=== PATIENT | female | born 1955 | race Caucasian/White ===

== ENCOUNTER → 2024-09-29 13:38 | Outpatient (REF) | payer MEDICARE, BC, SELFPAY | LOC: HWWDC 13:38 | PROVIDERS: ATTENDING PHYSICIAN Family Medicine | DX: Z12.31 Encounter for screening mammogram for malignant neoplasm of breast (principal) | CPT/HCPCS: 77063; 77067 ==

== ENCOUNTER 2024-12-05 05:40 | Emergency (ER) | payer MEDICARE, BC, SELFPAY ==
[2024-12-05 05:50] VITALS: BP 150/84
[2024-12-05 06:16] VITALS: BP 136/76
[2024-12-05 06:18] VITALS: BMI 34.8
[2024-12-05 06:19] VITALS: BP 136/76
[2024-12-05 06:39] LABS: COVID-19 Antigen Negative (Negative)
[2024-12-05] MEDS: NSS 1000 IV (06:39)
[2024-12-05 06:41] LABS: Blood Urea Nitrogen 17 mg/dl (7-17); Calcium 9.3 mg/dl (8.4-10.2); Carbon Dioxide 22 mmol/L (22-30); Chloride 97 mmol/L (98-107); Estimated Creatinine Clearance 94 ml/min; Glucose 142 mg/dl (70-99); Sodium 132 mmol/L (135-145); eGFR > 60.00
[2024-12-05] MEDS: ZOFRAN 4 MG IV (06:43)
--- NOTE | 2024-12-05 06:47 | ED.GENMED ---
History of Present Illness
General
Chief Complaint: Abdominal Symptoms
Source: patient and spouse
Exam Limitations: none
Time Seen by Provider: 12/05/24 06:04
History of Present Illness
History of Present Illness:
This is a 69-year-old female presents nausea vomiting diarrhea. Symptoms started at 11:00 last night. The patient states that her symptoms persisted through the night. This morning patient symptoms persisted. She states on my evaluation that she
has not vomited in 45 minutes actually feels better. She has some soreness from vomiting in her mid abdomen but no true abdominal pain. No melena or hematochezia. She did have the chills but measured her temperature and was not febrile. Patient
denies dysuria. No obvious sick contacts
Past History
Past History
ED Past Medical History: HTN and Hypercholesterolemia
ED Past Surgical History: Orthopedic and Tonsilectomy
Phy Exam
Physical Exam
Physical Exam:
CONSTITUTIONAL Patient alert and oriented to person, place and time. Well-appearing. Vital signs reviewed.
HEAD atraumatic, normocephalic.
EYES eyelids normal to inspection, Extraocular muscles intact, Conjunctiva normal, Sclera normal.
NECK normal range of motion, Trachea midline, no jugular venous distention.
RESPIRATORY CHEST No respiratory distress noted, Chest expansion equal
ABDOMEN abdomen nontender, Bowel sounds normal. No distention.
BACK normal inspection, no obvious deformities
UPPER EXTREMITY range of motion normal, Motor strength normal, no cyanosis, no edema.
LOWER EXTREMITY range of motion normal, Motor strength normal, no cyanosis, no edema.
NEURO Speech normal, No focal motor deficits, [place] coma scale 15, Memory normal, Cranial Nerves intact to screening exam.
SKIN skin warm, dry, and normal in color.
Course
Orders/Labs/Results
Orders:
Orders
12/05/24 06:14
Basic Metabolic Panel Urgent
Comment: NO K
COVID-19 Antigen Urgent
Source: Nasal Swab
Complete Blood Count/With Diff Urgent
Influenza A+B Rapid Molecular Urgent
TRES Source: Nasal Swab
Specimen Description:
12/05/24 06:27
0.9% Sodium Chloride 1000 ml [Nss] 1,000 ml IV BOLUS
12/05/24 06:42
Ondansetron Injectable [Zofran] 4 mg .ROUTE .STK-MED ONE
12/05/24 06:43
Ondansetron Injectable [Zofran] 4 mg IV NOW STA
12/05/24 07:04
Potassium Urgent
Abnormal Lab Results
12/05/24
06:14
MCH 31.3 H pg
(27.0-31.0)
Sodium 132 L mmol/L
(135-145)
Chloride 97 L mmol/L
(98-107)
Creatinine 0.5 L mg/dL
(0.6-1.0)
Glucose 142 H mg/dl
(70-99)
12/05/24 06:14
12/05/24 07:04
Vital Signs
Initial and Last Documented VS:
Initial Vital Signs
Temp Pulse Resp BP Pulse Ox
98.6 F 100 22 150/84 100
12/05/24 05:50 12/05/24 05:50 12/05/24 05:50 12/05/24 05:50 12/05/24 05:50
Last Documented Vital Signs
Temp Pulse Resp BP Pulse Ox
98.6 F 90 18 135/70 98
12/05/24 06:19 12/05/24 06:19 12/05/24 06:19 12/05/24 07:00 12/05/24 07:45
MDM/Problems Addressed
Differential Diagnosis Includes:
Bowel obstruction, appendicitis, colitis, enteritis, viral syndrome
MDM/Problems Addressed:
Gastroenteritis
*Pulse Oximetry
Patient hypoxic: no
*Critical Care Note
Total Time (30-74mins, 75-104mins- exclusive of procedures): Not Applicable
Data Reviewed
Source: patient and spouse
Further Testing Considered But Not Given:
Consider CT of the abdomen however abdomen soft and benign
Patient Management
Escalation/DeEscalation of care consider admission/obs:
Patient feels much better. Suspect gastroenteritis. Recommended slow progression of the diet. Proper fluid intake and outpatient follow-up
ED Attending Note
-
Portions of this chart may have been created with voice recognition software.� Occasional wrong word or��sound alike� substitutions may have occurred due to the inherent limitations of voice recognition software.
Discharge Plan
Departure
Patient Disposition: Home (Routine Discharge)
Date of Disposition: 12/05/24
Time of Disposition: 08:20
Patient with high blood pressure during this ER visit?: No
Discharge Problem:
Gastroenteritis
Instructions: Clear Liquid Diet, Nausea and Vomiting, Adult (DC)
Prescriptions:
New
ondansetron 4 mg tablet,disintegrating
4 mg PO Q8H PRN (Reason: nausea and vomiting) Qty: 14 0RF
No Action
rosuvastatin 5 mg Tablet
5 mg PO HS
Centrum Women 18-400 mg-mcg Tablet
1 tab PO DAILY
losartan 50 mg Tablet
50 mg PO DAILY
mupirocin 2 % ointment
1 applic topical BID Qty: 1 0RF
celecoxib 200 mg capsule
200 mg PO DAILY Qty: 14 0RF
Rx Instructions:
*take with food
*space out 2 hours from aspirin
aspirin 325 mg tablet
325 mg PO DAILY Qty: 1 0RF
Rx Instructions:
Take with food
dexamethasone 4 mg tablet
4 mg PO BID Qty: 6 0RF
Rx Instructions:
take with food
post-op use only
docusate sodium [Colace] 100 mg capsule
100 mg PO BID Qty: 1 0RF
sennosides [Senokot] 8.6 mg tablet
17.2 mg PO BID Qty: 2 0RF
famotidine 20 mg tablet
20 mg PO HS Qty: 30 0RF
Rx Instructions:
post-op
magnesium hydroxide [Milk of Magnesia] 400 mg/5 mL suspension
30 ml PO HS PRN (Reason: Constipation) Qty: 1 0RF
gabapentin 300 mg capsule
300 mg PO HS Qty: 10 0RF
oxycodone 5 mg tablet
5 - 10 mg PO Q6HPRN PRN (Reason: 1 tab moderate-2 tabs severe pain) Qty: 30 0RF
Rx Instructions:
Dx surgery
ongoing therapy
Post-op use
acetaminophen [Tylenol] 325 mg capsule
650 mg PO QID Qty: 2 0RF
Referrals:
Aron Crowell MD [Family Provider] -
Activity Restrictions/Additional Instructions:
Please drink plenty fluids and advance diet slowly. Return immediately for intractable vomiting, bloody stool, bloody vomit, abdominal pain or any other concerns
Interventions
Interventions:
*Risk Screen - Suicide Last Done: 12/05/24 05:50
*General Assessment Last Done: 12/05/24 06:22
*Neglect/Abuse Screening Last Done: 12/05/24 05:50
ED- Fall Risk Assessment Last Done: 12/05/24 06:22
*ED COVID-19 Vaccine History Last Done: 12/05/24 06:22
EP-Pfjlcz-Vpboxycswc Assessment Last Done: 12/05/24 06:20
ED- Cardiac Assessment Last Done: 12/05/24 06:20
ED- Neurological Assessment Last Done: 12/05/24 06:20
ED- Pulmonary Assessment Last Done: 12/05/24 06:20
Discharge Date and Time
Print Language: AMHARIC
[2024-12-05 07:00] VITALS: BP 135/70
[2024-12-05 07:03] LABS: Hematocrit 40.3 % (37.0-47.0); Hemoglobin 14.1 g/dL (12.0-16.0); Mean Corpuscular Hgb 31.3 pg (27.0-31.0); Mean Corpuscular Volume 89.4 fL (81.0-99.0); Mean Platelet Volume 8.4 fL (7.4-10.4); Platelet Count 273 10^3/uL (130-400); Red Blood Cell Count 4.51 10^6/uL (4.20-5.40); Red Cell Dist. Width 12.6 % (11.5-14.5); White Blood Cell Count 5.3 10^3/uL (4.8-10.8)
[2024-12-05 07:31] LABS: Potassium 4.8 mmol/L (3.5-5.1)
[2024-12-05 08:55] LABS: Absolute Neutrophils -Man Diff 4.7 10^3/uL (1.4-6.5); Band Neutrophils 14 % (0-3); Lymphocytes 5 % (20-51); Monocytes 5 % (2-9); Platelets Checked YES; Segmented Neutrophils 76 % (42-75)
[2024-12-05 08:57] LABS: Normal RBC Morphology No; Target Cells FEW; Tear Drop Red Blood Cells FEW
[2024-12-05 08:58] LABS: Total Cells Counted 100
== END 2024-12-05 08:32 | disposition home or self-care (01) ==
LOC: EMR 05:40
PROVIDERS: Student in an Organized Health Care Education/Training Program; EMERGENCY PHYSICIAN Emergency Medicine; FAMILY PHYSICIAN Family Medicine
DX: K52.9 Noninfective gastroenteritis and colitis, unspecified (principal); I10 Essential (primary) hypertension; E78.00 Pure hypercholesterolemia, unspecified
CPT/HCPCS: 99283; 96374; 96361; 80048; 84132; 85025; 87502; 87811

== ENCOUNTER 2025-09-26 10:02 | Day surgery (SDC) | payer MEDICARE, BC, SELFPAY ==
--- NOTE | 2025-09-09 11:04 | CM ---
Demographics:confirmed
Living situation: lives with
Support Person Post Operatively:
History of
VN: [facility], not currently on service
SNF: No
Outpatient: [facility] 09/28 appointment.
Has patient purchased required equipment: yes, walker
PCP: confirmed
Pharmacy: [facility]
Post Operative Discharge Plan: Home with family support and outpatient PT
[2025-09-12 13:56] LABS: Hematocrit 37.9 % (37.0-47.0); Hemoglobin 13.0 g/dL (12.0-16.0); Mean Corp Hgb Conc. 34.3 g/dL (33.0-37.0); Mean Corpuscular Volume 93.6 fL (81.0-99.0); Platelet Count 285 10^3/uL (130-400); Red Cell Dist. Width 12.8 % (11.5-14.5)
[2025-09-12 14:07] VITALS: BMI 36.3
[2025-09-12 14:52] LABS: ALT (SGPT) 20 U/L (0-35); AST (SGOT) 23 U/L (14-36); Albumin 4.5 g/dl (3.5-5.0); Alkaline Phosphatase 122 U/L (38-126); Blood Urea Nitrogen 18 mg/dl (7-17); Calcium 9.6 mg/dl (8.4-10.2); Carbon Dioxide 27 mmol/L (22-30); Chloride 96 mmol/L (98-107); Estimated Creatinine Clearance 81 ml/min; Glucose 122 mg/dl (70-99); Potassium 4.3 mmol/L (3.5-5.1); Sodium 131 mmol/L (135-145); Total Protein 6.9 g/dl (6.3-8.2); eGFR > 60.00
[2025-09-12 16:35] VITALS: BMI 36.3
[2025-09-13 09:33] LABS: Glycohemoglobin (HgbA1c) 5.7 % (4.0-5.9)
[2025-09-26] VITALS (17 sets, daily range): BP systolic 111–173; BP diastolic 57–85; PULSE 63; O2SAT 97
[2025-09-26] MEDS: CELEBREX PO (10:31)
[2025-09-26] MEDS: TYLENOL 650 MG PO ×3 (10:31→20:35)
[2025-09-26] MEDS: CELEBREX 200 MG PO (10:38)
[2025-09-26] MEDS: NORMOSOL-R/PLASMALYTE-A 1000 IV ×2 (10:51→16:38)
--- NOTE | 2025-09-26 14:50 | W.PN.ORTHO ---
Today's Communication / Plan
-
d/c when stable
Assessment
.
Dressing:
Clean, dry and intact.
Plan
.
Surgery / Date: L TKA Dr Oakley 09/26/25
DVT Prophylaxis: Aspirin
Activity:
Out of bed.
PT/OT
Discharge Plan: Home w/ Outpatient PT
Vital Signs and Labs
.
Vital Signs and Labs:
Lab Results
09/12/25 13:23
09/12/25 13:23
Temp Pulse Resp BP Pulse Ox
97.4 F 63 19 116/58 98
09/26/25 14:35 09/26/25 14:35 09/26/25 14:35 09/26/25 14:35 09/26/25 14:35
--- NOTE | 2025-09-26 14:56 | W.DS.TRANS ---
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
-
Discharge Instructions:
Sleep Apnea Risk Intermediate
Discharge Diagnosis/Procedures L knee OA s/p L TKA w/ Dr Oakley 09/26/25
Diet Regular
Additional Diets Adequate hydration, minimize opioids, and wear
TEDs stockings to prevent low blood pressure/
dizziness.
Activity As tolerated,With Walker
Driving Restrictions Not until seen by your Dr
Bathing Restrictions OK to Shower
Other Services PT
Wound Care Dressing to be removed 1 week post-surgery.
[place] to be removed at 2 week follow-up with
surgeon's office.
Instructions:
Stand-Alone Forms: Total Hip/Knee Replacement D/C
Changes to Home Medications: Yes
Discharge Medications:
DC Medications w/original date entered in [facility]
multivitamin-ferrous fumarate-folic acid 18 mg-400 mcg tablet (Centrum Women) 1 tab PO DAILY Supplement 03/17/23
Held on 09/26/25. Instructions: Resume on 10/04/25.
rosuvastatin 5 mg tablet 5 mg PO QPM High Cholesterol 03/17/23
calcium carbonate (Calcium 600) 1,200 mg PO DAILY 09/08/25
celecoxib 200 mg capsule (Celebrex) 200 mg PO DAILY #14 caps 09/12/25
dexamethasone 4 mg tablet 4 mg PO BID Anti-inflammatory #5 tabs 09/12/25
famotidine 20 mg tablet (Pepcid) 20 mg PO HS #30 tabs 09/12/25
mupirocin 2 % topical ointment 1 applic intranasal BID #1 tube 09/12/25
ondansetron HCl 4 mg tablet 4 mg PO Q6H PRN nausea and vomiting #30 tabs 09/12/25
oxycodone 5 mg tablet 5 - 10 mg (1 - 2 x 5 mg) PO Q6H PRN moderate-severe pain #30 tabs 09/12/25
acetaminophen 325 mg tablet (Tylenol) 650 mg (2 x 325 mg) PO QID #1 tab 09/26/25
aspirin 325 mg tablet 325 mg PO DAILY blood clot prevention #1 tab 09/26/25
docusate sodium 100 mg capsule (Colace) 100 mg PO BID stool softner #1 cap 09/26/25
losartan 50 mg tablet 50 mg PO DAILY Blood Pressure #0 tabs 09/26/25
magnesium hydroxide 400 mg/5 mL oral suspension (Milk of Magnesia) 30 ml PO HS PRN constipation #1 mL 09/26/25
sennosides 8.6 mg tablet (Senokot) 17.2 mg (2 x 8.6 mg) PO BID laxative #2 tabs 09/26/25
Home Medication Changes
celecoxib 200 mg capsule (Celebrex) 200 mg PO DAILY #14 caps 09/12/25
dexamethasone 4 mg tablet 4 mg PO BID Anti-inflammatory #5 tabs 09/12/25
famotidine 20 mg tablet (Pepcid) 20 mg PO HS #30 tabs 09/12/25
mupirocin 2 % topical ointment 1 applic intranasal BID #1 tube 09/12/25
ondansetron HCl 4 mg tablet 4 mg PO Q6H PRN nausea and vomiting #30 tabs 09/12/25
oxycodone 5 mg tablet 5 - 10 mg (1 - 2 x 5 mg) PO Q6H PRN moderate-severe pain #30 tabs 09/12/25
acetaminophen 325 mg tablet (Tylenol) 650 mg (2 x 325 mg) PO QID #1 tab 09/26/25
aspirin 325 mg tablet 325 mg PO DAILY blood clot prevention #1 tab 09/26/25
docusate sodium 100 mg capsule (Colace) 100 mg PO BID stool softner #1 cap 09/26/25
losartan 50 mg tablet 50 mg PO DAILY Blood Pressure #0 tabs 09/26/25
magnesium hydroxide 400 mg/5 mL oral suspension (Milk of Magnesia) 30 ml PO HS PRN constipation #1 mL 09/26/25
sennosides 8.6 mg tablet (Senokot) 17.2 mg (2 x 8.6 mg) PO BID laxative #2 tabs 09/26/25
Pending Results: No
[2025-09-26] MEDS: ROXICODONE 5 MG PO (15:57)
--- NOTE | 2025-09-26 19:15 | PTCARENOTE ---
Pt arrived to 2S from PACU @6615. AAOx3. VSS. Left knee dressing with scant amount of drainage noted. Neurovascular assessment wnl. Pt oriented to room, call winslow within reach, care is ongoing.
[2025-09-26] MEDS: CRESTOR 5 MG PO (20:33)
[2025-09-26] MEDS: BACTROBAN 2% OINTMENT 1 APPLIC NASAL (20:33)
[2025-09-26] MEDS: ANCEF 5 IV (20:33)
[2025-09-26] MEDS: ASPIRIN 325 MG PO (20:33)
[2025-09-26] MEDS: COLACE 100 MG PO (20:34)
[2025-09-26] MEDS: SENOKOT 17.2 MG PO (20:34)
[2025-09-26] MEDS: DECADRON 4 MG IV (20:34)
[2025-09-26] MEDS: TORADOL 15 MG IV (20:34)
[2025-09-26] MEDS: ULTRAM 25 MG PO (20:35)
[2025-09-26] MEDS: PEPCID 20 MG PO (21:39)
[2025-09-27] MEDS: TYLENOL PO (00:48)
[2025-09-27 03:15] VITALS: BP 134/67
[2025-09-27] MEDS: TYLENOL 650 MG PO ×2 (03:22→07:39)
[2025-09-27] MEDS: ANCEF 5 IV (03:23)
[2025-09-27] MEDS: BACTROBAN 2% OINTMENT 1 APPLIC NASAL (07:36)
[2025-09-27] MEDS: ASPIRIN 325 MG PO (07:37)
[2025-09-27] MEDS: CELEBREX 200 MG PO (07:38)
[2025-09-27] MEDS: COLACE 100 MG PO (07:39)
[2025-09-27] MEDS: SENOKOT 17.2 MG PO (07:39)
[2025-09-27] MEDS: TORADOL 15 MG IV (07:40)
[2025-09-27 07:42] VITALS: BP 127/63
[2025-09-27] MEDS: DECADRON 4 MG IV (07:44)
[2025-09-27] MEDS: ULTRAM PO (07:49)
--- NOTE | 2025-09-27 08:23 | CM ---
Chart reviewed and immigration case manager met with patient this am, patient is for discharge today, spouse will transport patient. Patient has outpatient PT set up at [facility] 09/28
Plan; Home today, spouse to transport.
[2025-09-27 08:29] VITALS: BP 161/83; PULSE 86; O2SAT 97
[2025-09-27 09:50] VITALS: BP 140/72; PULSE 75; O2SAT 98
--- NOTE | 2025-09-27 10:11 | W.PN.ORTHO ---
Today's Communication / Plan
-
d/c
Assessment
.
Distal Motor Intact: Yes
Dressing:
Clean, dry and intact.
Plan
.
Surgery / Date: Tosin Oakley 09/26/25
DVT Prophylaxis: Aspirin
Activity:
Out of bed.
PT/OT
Discharge Plan: Home w/ Outpatient PT
Subjective
.
.:
Patient resting comfortably.
Vital Signs and Labs
.
Vital Signs and Labs:
Lab Results
09/12/25 13:23
09/12/25 13:23
Temp Pulse Resp BP Pulse Ox
97.8 F 67 18 127/63 95
09/27/25 07:42 09/27/25 07:42 09/27/25 07:42 09/27/25 07:42 09/27/25 07:42
Non-invasive Hgb result: 12.7
Physical Exam
-
HEENT: No pallor, cyanosis, or jaundice. Throat clear.
NECK: Supple. No JVD.
RESPIRATORY: Lungs clear to auscultation.
CVS: S1, S2 normal. RRR.� No murmur, rub or gallop.
ABDOMEN: Soft, non-tender. No distension. BS+/normal.
EXTREMITIES: strength equal, no calf pain with palpation
PHYTOPATHOLOGIST: AOx3. No focal deficits. manager industrial grossly intact
== END 2025-09-27 10:35 | disposition home or self-care (01) ==
LOC: SDS 10:02
PROVIDERS: ATTENDING PHYSICIAN Specialist; FAMILY PHYSICIAN Family Medicine
PROC: 0SRD0J9 Replacement of Left Knee Joint with Synthetic Substitute, Cemented, Open Approach (ICD-10-PCS; 2025-09-26)
DX: M17.12 Unilateral primary osteoarthritis, left knee (principal); E87.1 Hypo-osmolality and hyponatremia; Z68.36 Body mass index [BMI] 36.0-36.9, adult; E66.9 Obesity, unspecified; I10 Essential (primary) hypertension; E78.5 Hyperlipidemia, unspecified; J45.909 Unspecified asthma, uncomplicated; K21.9 Gastro-esophageal reflux disease without esophagitis; F41.9 Anxiety disorder, unspecified; M85.80 Other specified disorders of bone density and structure, unspecified site; R73.03 Prediabetes
CPT/HCPCS: 27447; C1776; 36415; 73560; 80053; 83036; 85027; 87070; 93005; 97110; 97116; 97162; 97167